=== PATIENT | male | born 1995 | race Caucasian/White ===

== ENCOUNTER 2016-04-21 08:17 | Emergency (ER) | payer OTHER ==
[~2016-04-21] VITALS: Ht 172.7 cm; Wt 77.1 kg
[2016-04-21 08:41] VITALS: BP 119/64
--- NOTE | 2016-04-21 08:41 | NUR ---
C/O MID TO UPPER BACK PAIN S/P MOVING LARGE ROCK WITH SHOVEL [id number]----RKQC RELATED INJURY, LANDSCAPING PAIN WITH ANY MOVEMENT.
--- NOTE | 2016-04-21 08:41 | NUR ---
Jose Maria sanford in ED - 05/16/16 at 1623 by ASHLEE C/O MID TO UPPER BACK PAIN S/P MOVING LARGE ROCK WITH SHOVEL [id number]----ESHA RELATED INJURY, LANDSCAPING PAIN WITH ANY MOVEMENT.
[2016-04-21] MEDS ORDERED: KETOROLAC 60 MG/2 ML VIAL IM ONE (08:50)
[2016-04-21] MEDS ORDERED: MORPHINE SULFATE 4 MG/ML SYR IM ONE (09:45)
[2016-04-21] MEDS ORDERED: DIAZEPAM PFS 10 MG/2 ML SYR IM ONE (09:45)
--- NOTE | 2016-04-21 09:45 | NUR ---
VALIUM 5 MG IM WAS GIVEN ORDERED.5 MG OF VALIUM WAS WASTED.
--- NOTE | 2016-04-21 09:45 | NUR ---
Jose Maria sanford in [facility] - 05/16/16 at 1625 by MNCOLLINML HALDOL 5 MG IM WAS GIVEN ORDERED.5 MG OF HALDOL WAS WASTED.
[2016-04-21 10:50] VITALS: BP 134/73
--- NOTE | 2016-04-21 10:50 | NUR ---
Patient discharged with v/s stable. Written and verbal after care instructions given and explained. WITH FEDE NESS LPN [employer] Patient alert, oriented and verbalized understanding of instructions. Ambulatory with steady gait. All questions addressed prior to discharge. ID band removed. Patient advised to follow up with PMD. Rx of VALIUM,MOTRIN,NORCO given. Patient educated on indication of medication including possible reaction and side effects. Opportunity to ask questions provided and answered.
== END 2016-04-21 10:50 | disposition home or self-care (01) ==
LOC: MED 08:17
DX: M54.9 Dorsalgia, unspecified (principal)
CPT/HCPCS: 96372; 99284; J1885; J2270; J3360